=== PATIENT | male | born 1975 | race Caucasian/White ===

== ENCOUNTER 2016-10-17 18:45 | Emergency (ER) | payer SELFPAY ==
[~2016-10-17] VITALS: Ht 167.6 cm; Wt 68.0 kg
[~2016-10-17 18:45] MED LIST: ATIVAN1 MG ORAL; LIBRIUM25 MG ORAL; NKM
[2016-10-17] MEDS ORDERED: LORazepam 1mg tab ORAL ONE (19:30)
[2016-10-17 19:50] LABS: MEAN CORPUSCULAR HGB CONC 33.5 G/DL (32.0-36.0); MEAN CORPUSCULAR VOLUME 95 FL (80-99); MEAN PLATELET VOLUME 8.5 FL (6.5-10.1); PLATELET COUNT 71 K/UL (150-450); RED BLOOD COUNT 4.53 M/UL (4.70-6.10); RED CELL DISTRIBUTION WIDTH 11.6 % (11.6-14.8); WHITE BLOOD COUNT 6.2 K/UL (4.8-10.8)
[2016-10-17 19:51] LABS: BASOPHILS % (AUTO) 1.6 % (0.0-2.0); EOSINOPHILS % (AUTO) 0.6 % (0.0-3.0); MONOCYTES % (AUTO) 8.3 % (1.0-10.0); NEUTROPHILS % (AUTO) 45.6 % (45.0-75.0)
[2016-10-17 19:55] LABS: ALANINE AMINOTRANSFERASE 240 U/L (3-41); ALBUMIN/GLOBULIN RATIO 1.6 (1.0-2.7); ANION GAP 22 (5-15); APPEARANCE,URINE CLEAR; ASPARTATE AMINO TRANSFERASE 280 U/L (5-40); CALCIUM 9.1 mg/dL (8.6-10.2); CARBON DIOXIDE 23 mEQ/L (20-30); CHLORIDE 94 mEQ/L (98-107); CREATININE 0.6 mg/dL (0.7-1.2); GLOMERULAR FILTRATION RATE > 60 mL/min (>60); HEMOLYSIS 8; KETONES,URINE NEGATIVE (NEGATIVE); LEUKOCYTE ESTERASE ,URINE NEGATIVE (NEGATIVE); NITRITE,URINE NEGATIVE (NEGATIVE); PH,URINE 6.5 (4.5-8.0); POTASSIUM 3.6 mEQ/L (3.4-4.9); PROTEIN,URINE 2+ (NEGATIVE); SODIUM 139 mEQ/L (135-145); TOTAL PROTEIN 8.1 g/dL (6.6-8.7); UROBILINOGEN,URINE NORMAL MG/DL (0.0-1.0)
[2016-10-17 20:14] LABS: RBC,URINE 0-2 /HPF (0 - 0); WBC,URINE 0-2 /HPF (0 - 0)
[2016-10-17] MEDS ORDERED: ZOFRAN ODT4 MG ORAL (20:24)
[2016-10-17] MEDS ORDERED: LIBRIUM25 MG ORAL (20:24)
[2016-10-17 21:21] VITALS: BP_SYST 129; BP_SYST 152; BP_DIAS 69; BP_DIAS 98
--- NOTE | 2016-10-17 22:27 | Emergency Room Report ---
History of Present Illness General Chief Complaint: Alcohol Intoxication Source: Family Member Present Illness HPI 40 Yo male presents to the ED intoxicated with alcohol brought by concerned family member for 1 month of binge drinking 6-7 40oz beers daily. -- pt has Hx of alcohol withdrawal seizures. family member also states roommate mentioned that 3 days ago pt. had blood in the stool. pt. denies blood in the vomit or stool, he states he had a bloody nose several days ago in the bathroom. denies vomiting. denies abdominal pain. Denies falls. HPI and ROS are limited due to poor pt. cooperation and language barrier. Allergies: Coded Allergies: Shrimp (Verified Allergy, Unknown, 04/20/16) Patient History Limited by: language barrier Past Medical History: see triage record Past Surgical History: none Pertinent Family History: none Social History: Reports: alcohol use Immunizations: UTD Reviewed Nursing Documentation: PMH: Agreed, PSxH: Agreed Nursing Documentation-PMH Past Medical History: No Stated History Hx Neurological Problems: Yes - DT from alcohol Review of Systems All Other Systems: limited - HPI and ROS are limited due to poor pt. cooperation and language barrier. Physical Exam Vital Signs Date Time Temp Pulse Resp B/P Pulse Ox O2 Delivery O2 Flow Rate FiO2 10/17/16 18:53 98.1 116 16 152/98 98 Room Air Sp02 EP Interpretation: reviewed, abnormal - pt. is tachycardic General Appearance: no apparent distress, alert, GCS 15, non-toxic, other - intoxicated, obvious ETOH on breath Head: normocephalic, atraumatic Eyes: bilateral eye PERRL, bilateral eye normal inspection ENT: hearing grossly normal, normal pharynx, no angioedema, normal voice, TMs + canals normal, uvula midline, moist mucus membranes, other - no evidence of epistaxis Neck: full range of motion, supple/symm/no masses Respiratory: chest non-tender, lungs clear, normal breath sounds, speaking full sentences Cardiovascular #1: regular rate, rhythm, no edema Gastrointestinal: normal bowel sounds, non tender, soft, no guarding, no rebound Rectal: deferred Musculoskeletal: back normal, gait/station normal, normal range of motion, non- tender Neurologic: alert, oriented x3, responsive, motor strength/tone normal, sensory intact, normal gait, no pronator, other - mildly slurred speech Psychiatric: judgement/insight normal, memory normal, mood/affect normal, no suicidal/homicidal ideation Skin: normal color, no rash, warm/dry, well hydrated Lymphatic: no adenopathy Medical Decision Making PA Attestation Dr. Donis is my supervising Physician whom patient management has been discussed with. Diagnostic Impression: Primary Impression: Acute alcoholic intoxication Qualified Codes: F10.120 - Alcohol abuse with intoxication, uncomplicated Additional Impressions: Alcohol withdrawal Qualified Codes: F10.230 - Alcohol dependence with withdrawal, uncomplicated Elevated LFTs ER Course Pt. presents to the ED intoxicated with alcohol brought by concerned family member for 1 month of binge drinking 6-7 40oz beers daily. -- pt has Hx of alcohol withdrawal seizures pt. is NAD, pt. is alert, no obvious signs of trauma, able to ambulate to chair. . Ddx considered but are not limited to ETOH, Trauma, Syncope, dementia, OD, withdraw Vital signs: , pt. is afebrile, BP is elevated. H&PE are most consistent with ETOH abuse, and hx of withdraw. ORDERS: -CBC: no evidence to suggest acute GI bleed -CMP: markedly elevated LFT's ED INTERVENTIONS: -1mg PO Ativan -500cc NS Bolus Observance while he detoxifies. Pt. was allowed to sleep/rest. - pt is able to tolerate oral fluids, VS stable, no obvious signs of agitation. -d/w family member that Liver enzymes are significantly elevated and pt. will need to follow up with PCP/GI specialist. will d/c pt. with Librium. DISCHARGE: At this time pt. is stable for d/c to home. Will provide printed patient care instructions, and any necessary prescriptions. Care plan and follow up instructions have been discussed with the patient prior to discharge. Labs Test 10/17/16 19:23 White Blood Count 6.2 K/UL (4.8-10.8) Red Blood Count 4.53 M/UL (4.70-6.10) Hemoglobin 14.5 G/DL (14.2-18.0) Hematocrit 43.3 % (42.0-52.0) Mean Corpuscular Volume 95 FL (80-99) Mean Corpuscular Hemoglobin 32.0 PG (27.0-31.0) Mean Corpuscular Hemoglobin Concent 33.5 G/DL (32.0-36.0) Red Cell Distribution Width 11.6 % (11.6-14.8) Platelet Count 71 K/UL (150-450) Mean Platelet Volume 8.5 FL (6.5-10.1) Neutrophils (%) (Auto) 45.6 % (45.0-75.0) Lymphocytes (%) (Auto) 44.0 % (20.0-45.0) Monocytes (%) (Auto) 8.3 % (1.0-10.0) Eosinophils (%) (Auto) 0.6 % (0.0-3.0) Basophils (%) (Auto) 1.6 % (0.0-2.0) Urine Color Pale yellow Urine Appearance Clear Urine pH 6.5 (4.5-8.0) Urine Specific [place] 1.005 (1.005-1.035) Urine Protein 2+ (NEGATIVE) Urine Glucose (UA) Negative (NEGATIVE) Urine Ketones Negative (NEGATIVE) Urine Occult Blood 2+ (NEGATIVE) Urine Nitrite Negative (NEGATIVE) Urine Bilirubin Negative (NEGATIVE) Urine Urobilinogen Normal MG/DL (0.0-1.0) Urine Leukocyte Esterase Negative (NEGATIVE) Urine RBC 0-2 /HPF (0 - 0) Urine WBC 0-2 /HPF (0 - 0) Urine Squamous Epithelial Cells None /LPF (NONE/OCC) Urine Bacteria None /HPF (NONE) Sodium Level 139 mEQ/L (135-145) Potassium Level 3.6 mEQ/L (3.4-4.9) Chloride Level 94 mEQ/L (98-107) Carbon Dioxide Level 23 mEQ/L (20-30) Anion Gap 22 (5-15) Blood Urea Nitrogen 5 mg/dL (7-23) Creatinine 0.6 mg/dL (0.7-1.2) Estimat Glomerular Filtration Rate > 60 mL/min (>60) Glucose Level 109 mg/dL (74-106) Calcium Level 9.1 mg/dL (8.6-10.2) Total Bilirubin 0.9 mg/dL (0.0-1.2) Aspartate Amino Transf (AST/SGOT) 280 U/L (5-40) Alanine Aminotransferase (ALT/SGPT) 240 U/L (3-41) Alkaline Phosphatase 91 U/L (40-129) Total Protein 8.1 g/dL (6.6-8.7) Albumin 5.0 g/dL (3.5-5.2) Globulin 3.1 g/dL Albumin/Globulin Ratio 1.6 (1.0-2.7) Urine Opiates Screen Negative (NEGATIVE) Urine Barbiturates Screen Negative (NEGATIVE) Phencyclidine (PCP) Screen Negative (NEGATIVE) Urine Amphetamines Screen Negative (NEGATIVE) Urine Benzodiazepines Screen Negative (NEGATIVE) Urine Cocaine Screen Negative (NEGATIVE) Urine Marijuana (THC) Screen Negative (NEGATIVE) Last Vital Signs Date Time Temp Pulse Resp B/P Pulse Ox O2 Delivery O2 Flow Rate FiO2 10/17/16 21:21 98.1 98 14 129/69 100 Room Air Disposition: HOME, SELF-CARE Condition: Stable Scripts Ondansetron Odt* (ZOFRAN ODT*) 4 Mg Tab.rapdis 4 MG ORAL Q6H Y for Nausea & Vomiting, #10 TAB Prov: Vesta Olivo 10/17/16 Chlordiazepoxide (Chlordiazepoxide HCl) 25 Mg Capsule 25 MG ORAL THREE TIMES A DAY for 5 Days, #15 CAP 0 Refills Prov: Vesta Olivo 10/17/16 Referrals: NOT CHOSEN IPA/,REFERRING (PCP) Patient Instructions: Alcohol Abuse and Nutrition, Alcohol Withdrawal Additional Instructions: Take medications as directed. Follow up with PCP in 3 days Return sooner to ED if new symptoms occur, or current symptoms become worse. Do not drink alcohol *Follow up with PCP for elevated Liver Enzymes * - Please note that this Emergency Department Report was dictated using mobileocollection systems administrator technology software, occasionally this can lead to erroneous entry secondary to interpretation by the dictation equipment. Vesta Olivo Oct 17, 2016 22:26
== END 2016-10-17 21:22 | disposition home or self-care (01) ==
LOC: EMR 19:40
DX: F10.239 Alcohol dependence with withdrawal, unspecified (principal); F10.229 Alcohol dependence with intoxication, unspecified; R94.5 Abnormal results of liver function studies; E11.9 Type 2 diabetes mellitus without complications; I10 Essential (primary) hypertension
CPT/HCPCS: 36415; 80053; 80300; 81003; 85025; 96360; 99284; J7040